=== PATIENT | female | born 1955 | race Caucasian/White ===

== ENCOUNTER 2017-02-26 22:10 | Emergency (ER) | payer BC ==
--- NOTE | ~2017-02-26 | HP ---
History And Physical [id number] [place]. [address] NAME: AMADOR PEDRAZA : 51 STATUS : DEP [facility]#: [id number] AGE: 62 ADM/REG DATE : 02/26/17 MR#: [id number] REPORT SERV DATE: 05/06/17 DICTATED BY: RADHIKA FRANCISCO DATE: 05/06/17 REPORT STATUS : Draft TRANSCRIBED BY: MODL DATE: 05/06/17 DATE OF ADMISSION: 02/26/2017 The patient presented after a fall, had noted a left wrist injury. X-rays showed a distal radius fracture. Hematoma block was performed using 2% lidocaine. The patient was still having discomfort, thus patient was sedated using propofol for sedation. Respiratory therapy was at bed side. ACLS equipment available as well too. The patient's wrist was held in traction, hyperflexion attempted with closed reduction of left wrist. X-rays repeated subsequent to procedure show minimal change in degree of angulation. After this, patient was neurovascularly intact after the procedure. A splint was placed on the left arm. The patient was awakened without any difficulty. She tolerated the procedure well. DAKOTA/KRYSTIAN Radhika Francisco M.D. / [id number] CC: Jero Meehan M.D.
[2017-02-26 23:16] LABS: BASOPHILS 0.4 %; BASOPHILS ABSOLUTE 0.03 10/3/uL (0.0-0.16); EOSINOPHILS 2.9 %; EOSINOPHILS ABSOLUTE 0.24 10/3/uL (0.0-0.53); HEMOGLOBIN 13.1 g/dL (12.0-16.0); IMMATURE GRANULOCYTES 0.1 %; IMMATURE GRANULOCYTES ABSOLUTE 0.01 10/3/uL (0.0-0.11); LYMPHOCYTES 15.2 %; LYMPHOCYTES ABSOLUTE 1.28 10/3/uL (0.67-4.30); MEAN CORPUS HGB CONC 35.4 g/dL (32.0-36.0); MEAN CORPUSCULAR HEMOGLOB 30.3 pg (26.0-34.0); MEAN CORPUSCULAR VOLUME 85.6 fL (80-100); MEAN PLATELET VOLUME 8.6 fL (9.2-13.0); MONOCYTES 10.2 %; MONOCYTES ABSOLUTE 0.86 10/3/uL (0.21-1.20); NEUTROPHILS 71.2 %; PLATELET COUNT 301 10/3/uL (150-400); RED CELL COUNT 4.32 10/6/uL (4.0-5.6); WHITE BLOOD CELLS 8.4 10/3/uL (4.5-10.5)
[2017-02-26 23:17] LABS: MANUAL DIFF NO %
[2017-02-26 23:32] LABS: A/G RATIO 1.6 (0.7-1.9); ALBUMIN 4.5 G/DL (3.5-5.0); ALKALINE PHOSPHATASE 65 U/L (45-117); BUN (BLOOD UREA NITROGEN) 13 MG/DL (6-23); CALCIUM, SERUM 8.8 MG/DL (8.5-10.4); CHLORIDE, SERUM 95 MMOL/L (96-112); CREATININE 0.81 MG/DL (0.55-1.02); GFR AFRICAN AMERICAN 90 ML/MIN (>=60); GFR NON AFRICAN AMERICAN 77 ML/MIN (>=60); GLOBULIN 2.8 G/DL (2.5-4.1); POTASSIUM, SERUM 3.4 MMOL/L (3.5-5.3); SGOT(AST) 31 U/L (5-40); SGPT(ALT) 29 U/L (5-65); TOTAL BILIRUBIN 0.6 MG/DL (0-1.2); TOTAL PROTEIN 7.3 G/DL (6.0-8.5)
[2017-02-26 23:33] LABS: CO2 (CARBON DIOXIDE) 24 MMOL/L (24-34); GLUCOSE, SERUM 102 MG/DL (60-99); SODIUM, SERUM 130 MMOL/L (135-148)
== END 2017-02-27 04:15 | disposition home or self-care (01) ==
LOC: ER 22:10
PROVIDERS: Emergency Medicine
PROC: 0PSLXZZ Reposition Left Ulna, External Approach (ICD-10-PCS; principal; 2017-02-26)
PROC: 0PSJXZZ Reposition Left Radius, External Approach (ICD-10-PCS; 2017-02-26)
DX: S52.572A Other intraarticular fracture of lower end of left radius, initial encounter for closed fracture (principal); Z88.0 Allergy status to penicillin; Z88.1 Allergy status to other antibiotic agents; Z88.8 Allergy status to other drugs, medicaments and biological substances; W11.XXXA Fall on and from ladder, initial encounter
CPT/HCPCS: 73110-LT; 80053; 85025; 96374; 96375; 96376; 99284; J1170; J2405